=== PATIENT | male | born 1950 | race Caucasian/White ===

== ENCOUNTER → 2020-10-05 | Day surgery (SDC) | payer OTHER ==
[~2020-10-05] MED LIST: ACIPHEX20 MG PO; AMLODIPINE BESYL5 MG PO; ANUCORT PR; ASPIR-LOW81 MG PO; BENICAR40 MG PO; CARVEDILOL25 MG PO; CELEBREX200 MG PO; COLACE 100MG C100 MG PO; COQ-10100 MG PO; COREG25 MG PO; COZAAR100 MG PO; CYMBALTA60 MG PO; DAILY MULTIPLE1 EAC1 PO; DIABETA 5 MG TAB5 MG PO; DRIZALMA SPRINK60 MG PO; ECOTRIN81 MG PO; ELDERBERRY PO; FLOMAX 0.4 MG0.4 MG PO; FLOMAX0.4 MG PO; FLUTICASONE SPRAY; GABAPENTIN300 MG PO; GLUCOPHAGE500 MG PO; GLUCOTROL XL 5 M5 MG PO; LEVOCETIRIZINE D5 MG PO; METFORMIN HCL500 M2 PO; METRONIDAZOLE TD; MONODOX100 MG PO; MONTELUKAST SOD10 MG PO; MULTIVITAMIN PO; NEURONTIN 300300 MG PO; NORCO 5-325 TA1 EACH PO; NORCO 7.5-3251 EACH PO; NORVASC 5 MG TAB5 MG PO; OXYCODONE-ACET1 EACH PO; PERCOCET 10-321 EACH PO; RABEPRAZOLE SOD20 MG PO; SINGULAIR10 MG PO; TESTOSTERONE IM; TURMERIC PO; VITAMIN B-12 IM; VITAMIN B-125000 MC1 PO; VITAMIN D3 PO; VITAMIN D350000 UNIT PO; XYZAL5 MG PO; ZINC50 M1 PO; ZOCOR10 MG PO; ZOFRAN ODT4 MG PO
== END | disposition home or self-care (01) ==
LOC: OR 06:22
DX: Z12.11 Encounter for screening for malignant neoplasm of colon (principal); D12.2 Benign neoplasm of ascending colon; D12.3 Benign neoplasm of transverse colon; K63.5 Polyp of colon; K57.30 Diverticulosis of large intestine without perforation or abscess without bleeding; K64.0 First degree hemorrhoids; K64.4 Residual hemorrhoidal skin tags; E11.9 Type 2 diabetes mellitus without complications; I10 Essential (primary) hypertension; E78.5 Hyperlipidemia, unspecified; K21.9 Gastro-esophageal reflux disease without esophagitis; M19.90 Unspecified osteoarthritis, unspecified site; F17.200 Nicotine dependence, unspecified, uncomplicated; Z86.010 Personal history of colon polyps; Z79.82 Long term (current) use of aspirin; Z79.84 Long term (current) use of oral hypoglycemic drugs; Z79.891 Long term (current) use of opiate analgesic; Z79.899 Other long term (current) drug therapy; Z20.822 Contact with and (suspected) exposure to COVID-19
CPT/HCPCS: 82962; J2704; J7040; U0002

== ENCOUNTER → 2021-02-07 | Outpatient (CLI) | payer OTHER | LOC: SLEEP 15:05 | DX: G47.33 Obstructive sleep apnea (adult) (pediatric) (principal) | CPT/HCPCS: 95811 ==